=== PATIENT | male | born 1975 | race African-American/Black ===

== ENCOUNTER 2018-10-10 18:37 | Emergency (ER) | payer OTHER ==
[~2018-10-10] VITALS: Ht 193 cm; Wt 160.6 kg
[2018-10-10 20:00] VITALS: BP 161/100
== END 2018-10-10 20:01 | disposition home or self-care (01) ==
LOC: M.ERS 18:37
DX: H10.9 Unspecified conjunctivitis (principal); Z88.0 Allergy status to penicillin